=== PATIENT | female | born 1970 | race Caucasian/White ===

== ENCOUNTER 2018-09-05 13:57 | Emergency (ER) | payer OTHER ==
[~2018-09-05] VITALS: Ht 162.6 cm; Wt 79.3 kg
--- NOTE | 2018-09-05 14:05 | NUR ---
CALLED FOR PT. PT NOT IN LOBBY AT THIS TIME.
[2018-09-05 14:49] LABS: BASOPHILS # (AUTO) 0.03 x10^3/uL (0-0.1); BASOPHILS % (AUTO) 0 % (0-1); EOSINOPHILS # (AUTO) 0.17 x10^3/uL (0-0.4); EOSINOPHILS % (AUTO) 2 % (1-7); LYMPHOCYTES # (AUTO) 2.35 x10^3/uL (1-3.4); LYMPHOCYTES % (AUTO) 21 % (22-44); MD NO; MEAN CORPUSCULAR HEMOGLOBIN 31.1 pg (27.0-34.8); MEAN CORPUSCULAR HGB CONC 33.7 g/dL (32.4-35.8); MEAN CORPUSCULAR VOLUME 92.3 fL (80-100); MEAN PLATELET VOLUME 7.7 fL (7.4-10.4); MONOCYTES # (AUTO) 0.89 x10^3/uL (0.2-0.8); MONOCYTES % (AUTO) 8 % (2-9); NEUTROPHILS # (AUTO) 7.96 x10^3/uL (1.8-6.8); NEUTROPHILS % (AUTO) 70 % (42-75); PLATELET COUNT 312 x10^3/uL (130-400); RED BLOOD COUNT 4.81 x10^6/uL (3.82-5.3); RED CELL DISTRIBUTION WIDTH 12.8 % (9.6-15.2)
[2018-09-05 14:56] LABS: INTERNATIONAL NORMALIZED RATIO 0.94 (0.93-1.1); PROTHROMBIN TIME 9.9 Seconds (9.6-11.5)
[2018-09-05 14:59] LABS: CHLORIDE 106 mmol/L (98-107)
[2018-09-05 15:08] LABS: ALANINE AMINOTRANSFERASE 68 U/L (12-78); ALBUMIN 3.5 g/dL (3.4-5.0); ALKALINE PHOSPHATASE 82 U/L (45-117); ANION GAP 8 mmol/L (5-15); BILIRUBIN,TOTAL 0.4 mg/dL (0.2-1.0); CALCIUM 8.7 mg/dL (8.5-10.1); CREATININE 0.86 mg/dL (0.55-1.02); TOTAL PROTEIN 7.8 g/dL (6.4-8.2)
[2018-09-05] MEDS ORDERED: LEVO88TA2 PO (17:55)
[2018-09-05] MEDS ORDERED: TRAM50TA2 PO (17:56)
[2018-09-05] MEDS ORDERED: LIOT5TAB10 PO (17:56)
[2018-09-05] MEDS ORDERED: SUVO10TA PO (17:57)
[2018-09-05] MEDS ORDERED: SERT50TA PO (17:57)
[2018-09-05] MEDS ORDERED: OMEG-157 PO (17:58)
[2018-09-05] MEDS ORDERED: VITA1CAP PO (17:58)
[2018-09-05] MEDS ORDERED: VIT1CAPS51 PO (17:59)
[2018-09-05 18:07] LABS: MICROSCOPIC AUTO
[2018-09-05 18:14] LABS: CULTURE INDICATED? YES
[2018-09-05 18:39] VITALS: BP 130/88
== END 2018-09-05 18:43 | disposition home or self-care (01) ==
LOC: ED 18:37
DX: K62.5 Hemorrhage of anus and rectum (principal); R10.31 Right lower quadrant pain; R10.32 Left lower quadrant pain; R10.30 Lower abdominal pain, unspecified; Z87.891 Personal history of nicotine dependence
CPT/HCPCS: 36415; 74021; 80053; 81001; 84703; 85025; 85610; 87086; 99284

== ENCOUNTER 2019-08-31 09:14 | Outpatient (CLI) | payer OTHER ==
[~2019-08-31 09:14] MED LIST: LEVO88TA2 PO; LIOT5TAB10 PO; OMEG-157 PO; SERT50TA PO; SUVO10TA PO; TRAM50TA2 PO; VIT1CAPS51 PO; VITA1CAP PO
== END 2019-08-31 23:59 | disposition home or self-care (01) ==
LOC: CFH 09:14
PROVIDERS: ATTEND Physician Assistant
DX: Z12.31 Encounter for screening mammogram for malignant neoplasm of breast (principal)
CPT/HCPCS: 77063; 77067

== ENCOUNTER 2020-01-03 13:25 | Day surgery (SDC) | payer OTHER ==
[2020-01-01 14:19] LABS: BASOPHILS % (AUTO) 1 % (0-1); EOSINOPHILS % (AUTO) 4 % (1-7); LYMPHOCYTES % (AUTO) 28 % (22-44); MEAN CORPUSCULAR HEMOGLOBIN 30.5 pg (27.0-34.8); MEAN CORPUSCULAR HGB CONC 33.4 g/dL (32.4-35.8); MEAN PLATELET VOLUME 8.2 fL (7.4-10.4); MONOCYTES % (AUTO) 12 % (2-9); NEUTROPHILS % (AUTO) 56 % (42-75); PLATELET COUNT 269 x10^3/uL (130-400); RED BLOOD COUNT 4.55 x10^6/uL (3.82-5.3); RED CELL DISTRIBUTION WIDTH 13.1 % (9.6-15.2)
[2020-01-01 14:21] LABS: CALCIUM 8.8 mg/dL (8.5-10.1); CHLORIDE 106 mmol/L (98-107); CREATININE 0.88 mg/dL (0.55-1.02)
[2020-01-01 14:36] LABS: MD NO
[2020-01-01 14:51] LABS: ANION GAP 5 mmol/L (5-15)
[~2020-01-03] VITALS: Ht 162.6 cm; Wt 75.5 kg
[~2020-01-03 13:25] MED LIST changes: +CALC-534 PO; +FENTANYL PF 100 MCG/2ML ONE; +LORA-439 PO; +MIDAZOLAM 1 MG/ML, 2ML ONE; +MULT-516 PO
[2020-01-03] MEDS ORDERED: PROMETHAZINE 25 MG/ML, 1ML IVPush PRN (13:30)
[2020-01-03] MEDS ORDERED: HYDROmorphone 1 MG/ML, 1ML INJ IVPush PRN (13:30)
[2020-01-03] MEDS ORDERED: ACETAMINOPHEN 325 MG TABLET PO PRN (13:30)
[2020-01-03] MEDS ORDERED: ONDANSETRON 2MG/ML, 2ML IVPush PRN (13:30)
[2020-01-03] MEDS ORDERED: OXYcodone 5 MG/5 ML ORAL.SOL UDC PO PRN (13:30)
[2020-01-03] MEDS ORDERED: LABETALOL 5MG/ML, 20ML IV PRN (13:30)
[2020-01-03] MEDS ORDERED: FENTANYL PF 100 MCG/2ML IV PRN (13:30)
[2020-01-03] MEDS ORDERED: DIAZEPAM 5 MG/ML, 2ML IVPush PRN (13:30)
[2020-01-03] MEDS ORDERED: DIPHENHYDRAMINE 50 MG/ML, 1ML IVPush PRN (13:30)
[2020-01-03] MEDS ORDERED: MEPERIDINE/PF 25MG/0.5ML IVPush PRN (13:30)
[2020-01-03 13:53] VITALS: BP 113/77
[2020-01-03] MEDS ORDERED: CHLORHEXIDINE 15 ML UDC MM ONE (14:00)
[2020-01-03] MEDS ORDERED: LACTATED RINGERS 1,000 ML IV SCH (14:00)
[2020-01-03 14:45] LABS: AMPHETAMINE SCREEN, URINE Negative (Negative); BARBITURATE SCREEN, URINE Negative (Negative); BENZODIAZEPINE SCREEN, URINE Negative (Negative); CANNABINOID SCREEN, URINE Positive (Negative); COCAINE SCREEN, URINE Negative (Negative); METHADONE SCREEN, URINE Negative (Negative); OPIATE SCREEN, URINE Negative (Negative)
[2020-01-03] MEDS ORDERED: ESTROGENS CONJUGATED VAG CRM 0.625MG/1G, 30GM ONE (15:20)
[2020-01-03] MEDS ORDERED: EPINEPHRINE 1 MG/ML, 1ML ONE (15:20)
[2020-01-03] MEDS ORDERED: BUPIVACAINE/PF 0.25% ONE (15:20)
[2020-01-03] MEDS ORDERED: DEXAMETHASONE 4 MG/ML, 1ML ONE (15:23)
[2020-01-03] MEDS ORDERED: ROCURONIUM 10 MG/ML,10ML ONE (15:23)
[2020-01-03] MEDS ORDERED: PROPOFOL 10 MG/ML, 20ML ONE (15:23)
[2020-01-03] MEDS ORDERED: ONDANSETRON 2MG/ML, 2ML ONE (15:23)
[2020-01-03] MEDS ORDERED: SUGAMMADEX 200 MG/2 ML IVPush ONE (15:23)
[2020-01-03] MEDS ORDERED: MEPERIDINE/PF 25MG/ML,1ML ONE (16:01)
[2020-01-03] MEDS ORDERED: OXYcodone 5 MG/5 ML ORAL.SOL UDC ONE (16:01)
== END 2020-01-03 17:35 | disposition home or self-care (01) ==
LOC: OR 13:25
PROVIDERS: ATTEND Obstetrics & Gynecology Maternal & Fetal Medicine
DX: Q52.10 Doubling of vagina, unspecified (principal); Z20.828 Contact with and (suspected) exposure to other viral communicable diseases; E03.9 Hypothyroidism, unspecified; G43.909 Migraine, unspecified, not intractable, without status migrainosus; E78.00 Pure hypercholesterolemia, unspecified; F32.9 Major depressive disorder, single episode, unspecified; F12.90 Cannabis use, unspecified, uncomplicated; Z90.710 Acquired absence of both cervix and uterus; Z98.890 Other specified postprocedural states
CPT/HCPCS: 36415; 57130; 80048; 80307; 84702; 85025; 87635; J1100; J2175; J2250; J2405; J2704; J3010; J7120; J0171; J3490